=== PATIENT | male | born 1995 | race African-American/Black ===

== ENCOUNTER 2019-09-28 20:08 | Emergency (ER) | payer OTHER, SELFPAY ==
[2019-09-28 20:10] VITALS: BP 135/55; PULSE 75; RESP 16; TEMP 37.9; O2SAT 100
--- NOTE | 2019-09-28 20:54 | ED.WOUNDLAC ---
HPI - Wound/Laceration General Chief Complaint: Wound/Laceration Stated Complaint: cut finger at work Time Seen by Provider: 09/28/19 20:54 Source: patient Mode of arrival: ambulatory Limitations: no limitations History of Present Illness HPI narrative: A 24 y/o male presents to the ED with c/o a laceration to his left middle finger. Pt states that he cut his finger on a tape dispenser at 7:30 PM. Pt is right hand dominant. Pt's tetanus immunization is UTD. Denies any numbness or tingling. Onset (ago): hour(s) (7:30 PM) Extremity Location: Left: hand (middle finger) Patient tetanus UTD: Yes Related Data Home Medications Medication Instructions Recorded Confirmed No Home Medications 09/28/19 09/28/19 Allergies Allergy/AdvReac Type Severity Reaction Status Date / Time No Known Allergies Allergy Verified 09/28/19 20:21 Review of Systems Review of Systems: All systems reviewed & are unremarkable except as noted in HPI and below Musculoskeletal: Comments: Reports: laceration to left middle finger [facility] Social History Social History (Updated 09/28/19 @ 20:59 by Penny Schneider) Smoking status: Never smoker Gender identity (if verbalized by the patient): Male Comments No significant PMHx. No PCP on file. Exam Const: General: no acute distress Orientation/consciousness: patient oriented x3 Eyes: Conjunctivae: conjunctivae normal Pupils: Equal, round and reactive pupils present Resp: Effort & Inspection: normal respiratory effort Skin: General skin exam: normal color Other: left distal lateral 3rd finger flap laceration, no bleeding, no erythma Neuro: Other: FROM of left hand and fingers. sensation intact Extrem: General: no clubbing, cyanosis or edema Course Vital Signs Vital signs: Vital Signs Temperature 100.3 F H 09/28/19 20:10 Pulse Rate 75 09/28/19 20:10 Respiratory Rate 16 09/28/19 20:10 Blood Pressure 135/55 L 09/28/19 20:10 Pulse Oximetry 100 09/28/19 20:10 Temperature 100.3 F H 09/28/19 20:10 Pulse Rate 75 09/28/19 20:10 Respiratory Rate 16 09/28/19 20:10 Blood Pressure 135/55 L 09/28/19 20:10 Pulse Oximetry 100 09/28/19 20:10 Procedures Laceration Laceration 1: Date: 09/28/19 Time: 21:10 Site: upper extremity (left 3rd distal finger) Size (cm): 1 Description: flap and clean Depth: simple, single layer ====== Skin Level ====== Skin layer closed with: dermabond ====== Subcutaneous Layer ====== ====== Muscle Layer ====== ====== Tendon Layer ====== Discharge Plan Discharge Clinical Impression: Laceration of finger of left hand Patient Disposition: Home, Self-Care Condition: Stable Instructions: Laceration (ED), Skin Adhesive Care (ED) Additional Instructions: Please read your discharge instructions. please keep your wound clean and keep covered if you are going to be involved in dirt. Watch for signs of infections. Prescriptions: No Action No Home Medications RF: 0 Follow-up/Referrals: UNKNOWN,DOCTOR [Primary Care Provider] - Discharge Date/Time: 09/28/19 21:18
== END 2019-09-28 21:18 | disposition home or self-care (01) ==
PROVIDERS: Emergency Provider General Practice
DX: S61.213A Laceration without foreign body of left middle finger without damage to nail, initial encounter (principal); W26.8XXA Contact with other sharp object(s), not elsewhere classified, initial encounter
CPT/HCPCS: 12001; 99282